=== PATIENT | male | born 1955 | race Caucasian/White ===

== ENCOUNTER 2020-03-09 14:51 | Emergency (ER) | payer OTHER ==
[~2020-03-09] VITALS: Ht 162.6 cm; Wt 72.6 kg
[2020-03-09 15:04] VITALS: Ht 162.6 cm; Wt 72.6 kg
[2020-03-09 15:52] VITALS: BP 200/102
== END 2020-03-09 15:52 | disposition left against medical advice (07) ==
LOC: ED 14:51
DX: F10.129 Alcohol abuse with intoxication, unspecified (principal)